=== PATIENT | female | born 1930 | race Caucasian/White ===

== ENCOUNTER 2016-07-26 11:03 | Inpatient (IN) | payer OTHER ==
[~2016-07-26] VITALS: Ht 154.9 cm; Wt 46.7 kg
--- NOTE | 2016-07-26 11:09 | NUR ---
86 Y/O FEMALE AMBULATORY INTO TRIAGE STATING "I JUST DONT FEEL WELL. I FEEL OFF BALANCE. I FEEL CONFUSED". REPORTS DECREASED PO APPETITE/PO INTAKE. ALSO C/O NAUSEA AND DIARRHEA. PT NOTED TO BE SOB - REPORTS HX COPD AND STATES "MY BREATING IT OFF TODAY TOO"
--- NOTE | 2016-07-26 11:42 | NUR ---
PT TO ROOM21 BY STRETCHER. PER PTS SON HE BROUGHT HER TO ER FOR DIARRHEA xWEEK SINCE SHE WAS DC FROM REHAB. PT WAS IN REHAB [id number] FOR PNEUMONIA. HX OF COPD, PT USES O2 2L NC AT HOME NEEDED. O2SAT 91% ON RA AT THIS TIME, PT PLACED ON O2 2L NC WITH O2SAT IMPROVEMENT 96%. PT CHANGED INTO HOSPITAL GOWN, PLACED ON TELLER HEAD NSR 70'S. AWAITING PROVIDER EVAL.
[2016-07-26] MEDS ORDERED: AMLODIPINE BESYL5 M1 PO (11:46)
--- NOTE | 2016-07-26 12:06 | ED GENERAL ADULT ---
History of Present Illness General Chief Complaint: General Adult Stated Complaint: DIARRHEA X 3 DAYS Source: patient Exam Limitations: no limitations Allergies Coded Allergies: No Known Allergies (07/26/16) Reconcile Medications Amlodipine Besylate 5 MG TABLET 1 TAB PO DAILY BP (Reported) Amoxicillin/Potassium Clav (Augmentin 875-125 Tablet) 875 MG-125 MG TABLET 1 TAB PO BID Pneumonia . Sertraline HCl 50 MG TABLET 0.5 TAB PO DAILY depression (Reported) Triage Note: 86 Y/O FEMALE AMBULATORY INTO TRIAGE STATING "I JUST DONT FEEL WELL. I FEEL OFF BALANCE. I FEEL CONFUSED". REPORTS DECREASED PO APPETITE/PO INTAKE. ALSO C/O NAUSEA AND DIARRHEA. PT NOTED TO BE SOB - REPORTS HX COPD AND STATES "MY BREATING IT OFF TODAY TOO" Triage Nurses Notes Reviewed? yes HPI: This patient is an 86-year-old female who presented to the emergency department today for evaluation of multiple complaints. She reported that over the last week she has been having approximately 2 episodes of diarrhea daily. She reported, "I don't always know when I have to move my bowels, sometimes it just comes out and I don't realize it." She denied any back pain. She reported some mild lower abdominal, "discomfort." She denied any abdominal pain. The patient denied any blood in the stool. She reported that she has been feeling chilled. She denied any fevers. She denied any chest pain. She reported decreased appetite and weakness. The patient also reported that she felt like she has been having a more difficult time breathing than normal. She reported that she sometimes uses oxygen at home at 2 L. (SVETLANA GOMEZ,MARYCHUY) Vital Signs & Intake/Output Vital Signs & Intake/Output Vital Signs Date Time Temp Pulse Resp B/P Pulse O2 O2 Flow FiO2 Ox Delivery Rate 07/27 1823 96 Nasal 2.0L Cannula 07/27 1726 98.1 72 20 129/56 96 07/27 1616 Nasal 2.0L Cannula 07/27 1600 96 Nasal 2.0L Cannula 07/27 1453 Nasal 2.0L Cannula 07/27 1451 96 Nasal 2.0L Cannula 07/27 0813 98.1 62 20 132/64 96 Nasal 2.0L Cannula 07/27 0800 96 Nasal 2.0L Cannula 07/27 0059 97.6 07/27 0000 Nasal 2.0L Cannula 07/26 2359 96.4 65 18 110/60 94 Nasal 2.0L Cannula ED Intake and Output 07/27 0000 07/26 1200 Intake Total 1825 Output Total Balance 1825 Intake, IV 1625 Intake, Oral 200 Patient 103 lb 103 lb Weight Past History Travel History Traveled to [place] past 21 day No Medical History Any Pertinent Medical History? see below for history Neurological: NONE EENT: NONE Cardiovascular: NONE Respiratory: COPD Gastrointestinal: NONE Hepatic: NONE Renal: NONE Musculoskeletal: NONE Psychiatric: NONE Endocrine: NONE Blood Disorders: NONE Cancer(s): NONE CAN DOFFER/Reproductive: NONE Surgical History Surgical History: non-contributory Psychosocial History What is your primary language Puerto Rican Tobacco Use: Quit >30 days ago Family History Hx Contributory? No (MARYCHUY MOTA PA-C) Review of Systems Review of Systems Constitutional: Reports: see HPI. EENTM: Reports: no symptoms. Respiratory: Reports: see HPI. Cardiovascular: Reports: no symptoms. GI: Reports: see HPI. Genitourinary: Reports: no symptoms. Musculoskeletal: Reports: no symptoms. Skin: Reports: no symptoms. Neurological/Psychological: Reports: no symptoms. All Other Systems: Reviewed and Negative (MARYCHUY MOTA PA-C) Physical Exam Physical Exam General Appearance: well developed/nourished, no apparent distress, alert, awake Comments: Well-developed well-nourished person in no acute distress HEENT: Normal EENT exam, head normocephalic, moist mucous membranes PERRLA bilaterally Pharynx normal. No swelling or edema. Neck: Supple, no lymphadenopathy Back: Normal inspection Cardiovascular: Regular rate and rhythm with no murmurs, rubs, or gallops Respiratory: Chest nontender. No respiratory distress. Scattered rhonchi throughout all lung melgoza. Abdomen: Soft, nontender and nondistended. No rebound or guarding. No peritoneal signs. Normoactive bowel sounds. No organomegaly Extremity: No edema, no calf tenderness to palpation, normal and equal pulses. Neuro: Alert oriented x3, cranial nerves II through XII grossly intact. Skin: No appreciable rash on exposed skin, skin is warm and dry. Psych: Mood and affect is normal Core Measures ACS in differential dx? Yes CVA/TIA Diagnosis: No Severe Sepsis Present: No Septic Shock Present: No (MARYCHUY MOTA PA-C) Progress Differential Diagnoses I considered the following diagnoses in my evaluation of the patient: [ Gastroenteritis, Clostridium difficile, irritable bowel syndrome, influenza, viral syndrome, ACS, PE, pneumonia, bronchitis, CHF, COPD] Diagnostic Imaging: Viewed by Me: Radiology Read, CT Scan. Discussed w/RAD: Radiology Read, CT Scan. Radiology Impression: PATIENT: GERALDINE VARGAS PRESENT AGE: 86 PATIENT ACCOUNT NO: [id number] : 32 LOCATION: ER ORDERING PHYSICIAN: MARYCHUY MOTA PA-C SERVICE DATE: 07/26/16 EXAM TYPE: CAT - CT HEAD WO IV CONTRAST EXAMINATION: CT HEAD WITHOUT CONTRAST CLINICAL INFORMATION: Rule out intracranial hemorrhage. Off balance. COMPARISON: None. TECHNIQUE: Contiguous axial imaging was performed from the skull base to vertex without intravenous administration of contrast. DLP: 529.16 mGy-cm. FINDINGS: There is no evidence of acute intracranial hemorrhage or territorial infarction. No abnormal mass effect or midline shift is seen. Garcia to white matter differentiation is well preserved. No extra-axial fluid collections are identified. There is severe microvascular ischemic change. There is moderate cerebral atrophy. The cavernous segments of the internal carotid arteries are calcified. Paranasal sinuses and mastoid air cells are clear. IMPRESSION: 1. No intracranial hemorrhage. 2. No evidence of acute cerebral or cerebellar infarction. 3. Severe microvascular ischemic disease. 4. Moderate cerebral atrophy. DICTATED BY: MAULIK ELLSWORTH MD DATE/TIME DICTATED:07/26/161244 TRACK SUBWAY REPAIR SUPERVISOR:RAYMOND DATE/TIME TRANSCRIBED:07/26/161244 CONFIDENTIAL, DO NOT COPY WITHOUT APPROPRIATE AUTHORIZATION. <Electronically signed in Other Vendor System> SIGNED BY: MAULIK ELLSWORTH MD 07/26/16 1253, PATIENT: GERALDINE VARGAS PRESENT AGE: 86 PATIENT ACCOUNT NO: [id number] : 32 LOCATION: [facility] ORDERING PHYSICIAN: MARYCHUY MOTA PA-C SERVICE DATE: 07/26/16 EXAM TYPE: RAD - XRY-CHEST XRAY, PA AND LATERAL EXAMINATION: XR CHEST CLINICAL INFORMATION: Weakness. Shortness of breath. Pneumonia. COMPARISON: Chest radiograph dated 02/22/2016. TECHNIQUE: 2 views of the chest were obtained. FINDINGS: The cardiac silhouette is normal in size. There is mild calcification of the aortic knob. There is a somewhat dense triangular shaped opacity within the left lower lung in the retrocardiac region which was not seen on the prior examination and is consistent with pneumonia. There is no pneumothorax or large pleural effusion. IMPRESSION: Left lower lobe retrocardiac pneumonia. This should be followed to resolution with serial radiographs following appropriate medical treatment. DICTATED BY: MAULIK ELLSWORTH MD DATE/TIME DICTATED:07/26/161258 TRACK SUBWAY REPAIR SUPERVISOR:RAYMOND DATE/TIME TRANSCRIBED:07/26/161258 CONFIDENTIAL, DO NOT COPY WITHOUT APPROPRIATE AUTHORIZATION. <Electronically signed in Other Vendor System> SIGNED BY: MAULIK ELLSWORTH MD 07/26/16 1306, PATIENT: GERALDINE VARGAS PRESENT AGE: 86 PATIENT ACCOUNT NO: [id number] : 32 LOCATION: [facility] ORDERING PHYSICIAN: MARYCHUY MOTA PA-C SERVICE DATE: 07/26/16 EXAM TYPE: CAT - CT ABD & PELVIS W IV CONTRAST; CT LUMB SPINE WO IV CONTRAST EXAMINATION: CT ABDOMEN AND PELVIS WITH CONTRAST CT LUMBAR SPINE WITHOUT CONTRAST CLINICAL INFORMATION: Diarrhea, abdominal pain, incontinence. COMPARISON: Chest CT 06/11/2014. TECHNIQUE: A noncontrast CT of the lumbar spine is performed with sagittal and coronal reformats. Contiguous axial thin section helical images of the abdomen and pelvis were performed following the administration of 94 mL of intravenous Optiray 320. The data set was reformatted in the coronal and sagittal planes and reviewed on an independent workstation. DLP: 420 mGy-cm. FINDINGS: LUNG BASES: Bronchial wall thickening in the left lower lobe with patchy airspace opacities extending to the posterior costophrenic sulcus compatible with atelectasis and/or pneumonia. LIVER, GALLBLADDER, BILIARY TREE: Innumerable hypoattenuating lesions throughout the liver, the majority of which were present and shown to represent cysts on an MRI from 2005. The gallbladder has been removed. No biliary ductal dilatation. PANCREAS: Normal SPLEEN: Normal ADRENAL GLANDS, KIDNEYS, URETERS, AND BLADDER: No hydronephrosis. Nephrograms are symmetric. No suspicious lesions BOWEL LOOPS: Diverticulosis of the descending and sigmoid colon without evidence of acute diverticulitis. No obstruction. Normal appendix. LYMPH NODES/RETROPERITONEUM: No retroperitoneal, mesenteric, or pelvic adenopathy. No ascites or free pelvic fluid. OSSEOUS STRUCTURES: No suspicious lesions. ADDITIONAL FINDINGS: Prominent refluxing left ovarian veins. There are perirectal varices protruding along the left lateral wall of the rectosigmoid. There are diffuse atherosclerotic calcifications of the abdominal aorta with a focal infrarenal aneurysm measuring 2.1 cm in diameter. There is a lobulated soft tissue lesion posterior to the left ischial tuberosity, within a fatty plane between portions of the gluteus raiza muscle measuring approximately 7.4 x 2.2 x 8.7 cm with interspersed fat. There are serpiginous areas of density which most likely represent dystrophic calcification. This most likely represents a vascular malformation. Evaluation of the lumbar spine demonstrates an elongated, enhancing lesion which has chronically enlarged the left S1-S2 neural foramen. This measures 2.1 x 2.3 x 5.0 cm and most likely represents a schwannoma. There is moderate degenerative disc disease with vacuum phenomenon and a broad-based posterior disc bulge at L5 -S1. There is a left foraminal disc osteophyte complex which moderately narrows the neural foramen. Mild right neural foraminal narrowing. At L4-L5, there is minimal anterolisthesis likely related to marked facet arthrosis, with a broad- based disc bulge mildly narrowing the neural foramen. There is no central stenosis. IMPRESSION: Presumed left S1 schwannoma noting elongated enhancing lesion measuring 2.1 x 2.3 x 5.0 cm chronically enlarging the S1-S2 neural foramen. Colonic diverticulosis without diverticulitis. Perirectal varices as described. Soft tissue lesion within the left gluteus raiza muscle posterior to the ischial tuberosity measuring 7.4 x 2.2 x 8.7 cm with serpiginous appearance, areas of increased density most likely representing calcification, and interspersed fat. This most likely represents a vascular malformation although could be further evaluated with an ultrasound if indicated. Left lower lobe bronchial wall thickening with basilar atelectasis and/or pneumonia. Innumerable hepatic hypodensities most likely representing cysts, the majority of which were shown to represent cysts on a 2006 MRI. [id number] degenerative disc disease of the lumbar spine, most pronounced at L5-S1. Minimal anterolisthesis at L4-L5 with marked facet arthrosis. DICTATED BY: CATHI PRICE MD DATE/TIME DICTATED:07/26/161403 TRACK SUBWAY REPAIR SUPERVISOR:RAD.STUBBS DATE/ TIME TRANSCRIBED:07/26/16 / 1404 CONFIDENTIAL, DO NOT COPY WITHOUT APPROPRIATE AUTHORIZATION. <Electronically signed in Other Vendor System> SIGNED BY: ALBERT SANTOSCATHI 07/26/16 1521 Initial ED EKG: normal axis, normal intervals, normal sinus rhythm, LVH, no ST T wave changes, 76 bpm Comments: 07/26/2016 2:50:31 PM: Dr. Cisneros is currently at the patient's bedside the evaluation. I spoke with this patient's son, Chapito: [phone]. I updated him on this patient's current clinical condition and the fact that she has a pneumonia. She will be admitted to the hospital for IV antibiotics. Pending CT scan of the abdomen and pelvis. (SVETLANA GOMEZ,MARYCHUY) Plan of Care: Orders Procedure Date/time Status PROTHROMBIN TIME 07/28 06 Active CBC WITHOUT DIFFERENTIAL 07/28 06 Active RT: Evaluation 07/27 1434 Active RAPID VIRAL INFLUENZA A 07/27 030 Complete CULTURE,URINE 07/27 030 Active CULTURE,STOOL 07/27 0307 Active THERAPIST ORDERS 07/27 UNK Complete Therapeutic Activities 07/27 UNK Complete PT EVAL LOW COMPLEX 20 MIN 07/27 UNK Complete Gait Training 07/27 UNK Complete Change service to 07/27 UNK Active MISSING MEDICATION FORM 07/27 UNK Active OXYGEN SETUP CHG 07/26 UNK Complete OXYGEN 07/26 UNK Complete OXYGEN TRANSPORT 07/26 UNK Complete Current Medications Sig/Celeste Start time Last Medication Dose Stop Time Status Admin Amlodipine Besylate 5 MG DAILY 07/28 1000 AC (Norvasc) Albuterol Sulfate 3 ML Q4H PRN 07/26 1715 AC (Proventil) Laboratory Tests 07/27/16 0615: Anion Gap 5, Estimated GFR > 60, BUN/Creatinine Ratio 31.7 H, Total Bilirubin 0.5, Direct Bilirubin 0.4, AST 20, ALT 49, Alkaline Phosphatase 77, Total Protein 5.6 L, Albumin 3.0 L, CBC w Diff NO MAN DIFF REQ, RBC 4.02 L, MCV 86.7, MCH 29.4, RDW 13.7, MPV 8.6, Gran % 87.6 H, Lymphocytes % 6.5 L, Monocytes % 5.7, Eosinophils % 0.2, Basophils % 0 L, Absolute Granulocytes 14.3 H, Absolute Lymphocytes 1.1 L, Absolute Monocytes 0.9 H, Absolute Eosinophils 0, Absolute Basophils 0, PUBS MCHC 33.9 Microbiology 07/27 533 URINE ROUT: Urine Culture - RECD 07/27 533 URINE ROUT: Streptococcus pneumoniae Antigen (M - COMP 07/27 533 URINE ROUT: Legionella Antigen - COMP 07/27 030 STOOL: Stool Culture - COLB 07/27 228 STOOL: Stool Culture - CAN Cancelled: Cancelled via OE: Per MD Decision Departure Departure Disposition: STILL A PATIENT Condition: Stable Clinical Impression Primary Impression: Pneumonia Qualifiers: Pneumonia type: due to unspecified organism Laterality: right Lung location: lower lobe of lung Qualified Code: J18.1 - Lobar pneumonia, unspecified organism Referrals: Hayden WHITNEY MD (PCP/Family) Departure Forms: Customer Survey General Discharge Information Prescriptions: Current Visit Scripts Amoxicillin/Potassium Clav (Augmentin 875-125 Tablet) 1 TAB PO BID 3 Days . Admission Note Spoke With: MAGALY HOLLINGSWORTH M.D Documentation of Exam: Documentation of any treatments & extenuating circumstances including Concerns Regarding Discharge (functional status, medication knowledge or non-compliance, living conditions, etc.) that warrant an admission rather than observation: [ This patient is an 86 year old female who presented for 1 week of diarrhea, weakness, and shortness of breath. Right sided retrocardiac pneumonia. WBC count of 19.1. Admission for follow-up blood cultures, follow-up stool cultures, follow-up urine culture, IV antibiotics, possible pulmonology consultation, repeat chest x-ray, PT consultation, and close monitoring. Premature discharge could prove medically harmful.] (MARYCHUY MOTA PA-C) PA/MARKETING RESEARCH ANALYST Co-Sign Statement Statement: ED Attending supervision documentation- [X] I saw and evaluated the patient. I have also reviewed all the pertinent lab results and diagnostic results. I agree with the findings and the plan of care as documented in the PA's/MARKETING RESEARCH ANALYST's documentation. [] I have reviewed the ED Record and agree with the PA's/MARKETING RESEARCH ANALYST's documentation. [] Additions or exceptions (if any) to the PAs/MARKETING RESEARCH ANALYST's note and plan are summarized below: [] (CARIDAD SANTOS,SHAWN Amin) Critical Care Note Critical Care Note Critical Care Time: non-applicable (MARYCHUY MOTA PA-C) [] I have reviewed the ED Record and agree with the PA's/MARKETING RESEARCH ANALYST's documentation. [] Additions or exceptions (if any) to the PAs/MARKETING RESEARCH ANALYST's note and plan are summarized below: [] (CARIDAD SANTOS,SHAWN Amin) Critical Care Note Critical Care Note Critical Care Time: non-applicable (SVETLANA GOMEZ,MARYCUHY)
--- NOTE | 2016-07-26 12:15 | NUR ---
BLOOD DRAWN AND SENT TO LAB-[facility]. PT SENT TO RAD BY MIGUEL.
[2016-07-26 12:28] LABS: ABSOLUTE BASOPHIL COUNT 0.3 /CUMM (0.0-0.2); ABSOLUTE EOSINOPHIL COUNT 0.1 /CUMM (0.0-0.7); ABSOLUTE GRANULOCYTE CT 16.2 /CUMM (1.4-6.5); ABSOLUTE LYMPH COUNT 1.4 /CUMM (1.2-3.4); ABSOLUTE MONOCYTE COUNT 1.1 /CUMM (0.10-0.60); BASOPHIL % 1.8 % (0.0-2.0); EOSINOPHIL % 0.3 % (0-5); GRANULOCYTE % 84.6 % (42.2-75.2); HEMATOCRIT 42.1 % (37-47); MEAN CORPUSCULAR HGB 29.4 PG (27.0-31.0); MEAN CORPUSCULAR HGB CONC 33.9 G/DL (33.0-37.0); MEAN CORPUSCULAR VOLUME 86.8 FL (81.0-99.0); MEAN PLATELET VOLUME 8.6 FL (7.4-10.4); PLATELET COUNT 221 /CUMM (130-400); RBC DISTRIBUTION WIDTH 13.8 % (11.5-14.5); RED BLOOD CELL CT 4.85 /CUMM (4.20-5.40); WHITE BLOOD CELL COUNT 19.1 /CUMM (4.8-10.8)
--- NOTE | 2016-07-26 12:53 | CT SCAN REPORT ---
EXAMINATION: CT HEAD WITHOUT CONTRAST CLINICAL INFORMATION: Rule out intracranial hemorrhage. Off balance. COMPARISON: None. TECHNIQUE: Contiguous axial imaging was performed from the skull base to vertex without intravenous administration of contrast. DLP: 529.16 mGy-cm. FINDINGS: There is no evidence of acute intracranial hemorrhage or territorial infarction. No abnormal mass effect or midline shift is seen. Garcia to white matter differentiation is well preserved. No extra-axial fluid collections are identified. There is severe microvascular ischemic change. There is moderate cerebral atrophy. The cavernous segments of the internal carotid arteries are calcified. Paranasal sinuses and mastoid air cells are clear. IMPRESSION: 1. No intracranial hemorrhage. 2. No evidence of acute cerebral or cerebellar infarction. 3. Severe microvascular ischemic disease. 4. Moderate cerebral atrophy.
--- NOTE | 2016-07-26 13:02 | NUR ---
RESP AT BEDSIDE FOR DUONEB.
--- NOTE | 2016-07-26 13:06 | RADIOLOGY REPORT ---
EXAMINATION: XR CHEST CLINICAL INFORMATION: Weakness. Shortness of breath. Pneumonia. COMPARISON: Chest radiograph dated 02/22/2016. TECHNIQUE: 2 views of the chest were obtained. FINDINGS: The cardiac silhouette is normal in size. There is mild calcification of the aortic knob. There is a somewhat dense triangular shaped opacity within the left lower lung in the retrocardiac region which was not seen on the prior examination and is consistent with pneumonia. There is no pneumothorax or large pleural effusion. IMPRESSION: Left lower lobe retrocardiac pneumonia. This should be followed to resolution with serial radiographs following appropriate medical treatment.
--- NOTE | 2016-07-26 13:28 | NUR ---
PT MEDICATED WITH SOLUMEDROL PER EMAR AND SENT TO CAT SCAN BY MIGUEL.
--- NOTE | 2016-07-26 15:09 | NUR ---
PT MEIDCATED WITH ROCEPHINE PER EMAR. NS AND ZITHROMAX INFUSING PER EMAR.
--- NOTE | 2016-07-26 15:21 | CT SCAN REPORT ---
EXAMINATION: CT ABDOMEN AND PELVIS WITH CONTRAST CT LUMBAR SPINE WITHOUT CONTRAST CLINICAL INFORMATION: Diarrhea, abdominal pain, incontinence. COMPARISON: Chest CT 06/11/2014. TECHNIQUE: A noncontrast CT of the lumbar spine is performed with sagittal and coronal reformats. Contiguous axial thin section helical images of the abdomen and pelvis were performed following the administration of 94 mL of intravenous Optiray 320. The data set was reformatted in the coronal and sagittal planes and reviewed on an independent workstation. DLP: 420 mGy-cm. FINDINGS: LUNG BASES: Bronchial wall thickening in the left lower lobe with patchy airspace opacities extending to the posterior costophrenic sulcus compatible with atelectasis and/or pneumonia. LIVER, GALLBLADDER, BILIARY TREE: Innumerable hypoattenuating lesions throughout the liver, the majority of which were present and shown to represent cysts on an MRI from 2005. The gallbladder has been removed. No biliary ductal dilatation. PANCREAS: Normal SPLEEN: Normal ADRENAL GLANDS, KIDNEYS, URETERS, AND BLADDER: No hydronephrosis. Nephrograms are symmetric. No suspicious lesions BOWEL LOOPS: Diverticulosis of the descending and sigmoid colon without evidence of acute diverticulitis. No obstruction. Normal appendix. LYMPH NODES/RETROPERITONEUM: No retroperitoneal, mesenteric, or pelvic adenopathy. No ascites or free pelvic fluid. OSSEOUS STRUCTURES: No suspicious lesions. ADDITIONAL FINDINGS: Prominent refluxing left ovarian veins. There are perirectal varices protruding along the left lateral wall of the rectosigmoid. There are diffuse atherosclerotic calcifications of the abdominal aorta with a focal infrarenal aneurysm measuring 2.1 cm in diameter. There is a lobulated soft tissue lesion posterior to the left ischial tuberosity, within a fatty plane between portions of the gluteus raiza muscle measuring approximately 7.4 x 2.2 x 8.7 cm with interspersed fat. There are serpiginous areas of density which most likely represent dystrophic calcification. This most likely represents a vascular malformation. Evaluation of the lumbar spine demonstrates an elongated, enhancing lesion which has chronically enlarged the left S1-S2 neural foramen. This measures 2.1 x 2.3 x 5.0 cm and most likely represents a schwannoma. There is moderate degenerative disc disease with vacuum phenomenon and a broad-based posterior disc bulge at L5-S1. There is a left foraminal disc osteophyte complex which moderately narrows the neural foramen. Mild right neural foraminal narrowing. At L4-L5, there is minimal anterolisthesis likely related to marked facet arthrosis, with a broad-based disc bulge mildly narrowing the neural foramen. There is no central stenosis. IMPRESSION: Presumed left S1 schwannoma noting elongated enhancing lesion measuring 2.1 x 2.3 x 5.0 cm chronically enlarging the S1-S2 neural foramen. Colonic diverticulosis without diverticulitis. Perirectal varices as described. Soft tissue lesion within the left gluteus raiza muscle posterior to the ischial tuberosity measuring 7.4 x 2.2 x 8.7 cm with serpiginous appearance, areas of increased density most likely representing calcification, and interspersed fat. This most likely represents a vascular malformation although could be further evaluated with an ultrasound if indicated. Left lower lobe bronchial wall thickening with basilar atelectasis and/or pneumonia. Innumerable hepatic hypodensities most likely representing cysts, the majority of which were shown to represent cysts on a 2006 MRI. [id number] degenerative disc disease of the lumbar spine, most pronounced at L5-S1. Minimal anterolisthesis at L4-L5 with marked facet arthrosis.
[2016-07-26] MEDS ORDERED: SERTRALINE HCL50 MG PO (16:14)
--- NOTE | 2016-07-26 16:26 | NUR ---
HOUSE STAFF AT BEDSIDE.
--- NOTE | 2016-07-26 16:35 | History & Physical ---
MANUELKALPANAKAMERON 07/26/16 1634: General Information and HPI MD Statement: I have seen and personally examined GERALDINE LOGAN and documented this H&P. The patient is a 86 year old F who presented with a patient stated chief complaint of 1. Shortness of breath 2. Diarrhea Source of Information: patient, old records Exam Limitations: no limitations History of Present Illness: Ms Logan is a 86 yr old woman who was known to be in her usual state of health one week ago. She has a PMH of COPD(2L oxygen PRN), HTN. She came to the hospital w/ a chief concern of diarrhea x 1 wk, and shortness of breath x 2 days. As per the pt, she developed diarrhea x 1 wk ago, increase in volume, loose stool, no associated blood, mucus or pain, symptomatic only during the day. No recent abx use, no travel, or abnormal food ingestion, no ill contacts, no fever , no abdominal pain. Also was concerned about shortness of breath only upon doing her daily chores, worsening in the last 24-48 hrs. No cough. No orthopnea. No chest pain, palpitations, no lightheadedness. No urinary symptoms. No chills. Reports imbalance when walking which is chronic. Independent at baseline. Sees Dr. Whitney ( PCP ). Gives a remote history of hepatitis C, details of which are not clear. Allergies/Medications Allergies: Coded Allergies: No Known Allergies (07/26/16) Home Med list Amlodipine Besylate 5 MG TABLET 1 TAB PO DAILY BP (Reported) Sertraline HCl 50 MG TABLET 0.5 TAB PO DAILY depression (Reported) Past History Travel History Traveled to [place] past 21 day No Medical History Neurological: NONE EENT: NONE Cardiovascular: NONE Respiratory: COPD Gastrointestinal: NONE Hepatic: NONE Renal: NONE Musculoskeletal: NONE Psychiatric: NONE Endocrine: NONE Blood Disorders: NONE Cancer(s): NONE [employer]/Reproductive: NONE Surgical History Surgical History: non-contributory Past Family/Social History Family History Relations & Conditions if any Relation not specified for: *No pertinent family history Review of Systems Review of Systems Constitutional: Reports: see HPI. Denies: chills, fever. EENTM: Denies: visual changes. Cardiovascular: Denies: chest pain, palpitations. Respiratory: Reports: short of breath. Denies: cough. GI: Reports: diarrhea. Denies: abdominal pain, nausea, bloody stool. Genitourinary: Denies: dysuria, hesitation. Musculoskeletal: Denies: gout. Skin: Denies: change in skin color. Neurological/Psychological: Denies: anxiety, headache. Hematologic/Endocrine: Denies: bruising. Exam & Diagnostic Data Last 24 Hrs of Vital Signs/I&O Vital Signs Date Time Temp Pulse Resp B/P Pulse O2 O2 Flow FiO2 Ox Delivery Rate 07/26 1907 Nasal 2.0L Cannula 07/26 1746 98.6 74 18 119/58 95 Room Air 07/26 1600 98.6 70 18 146/56 95 Nasal 2.0L Cannula 07/26 1339 94 Nasal 2.0L Cannula 07/26 1151 Nasal Cannula 07/26 1108 97.1 91 22 138/90 92 Room Air Intake & Output 07/26 1600 07/26 0800 07/26 0000 Intake Total Output Total Balance Patient 103 lb Weight Physical Exam General Appearance Alert, Oriented X3, Cooperative, No Acute Distress Skin No Rashes, No Breakdown, bruise on the left foot-ventral surface HEENT PERRLA Neck Supple, No JVD, No thryomegaly Lymphatic Cervical nl Cardiovascular Regular Rate, Normal S1, Normal S2 Lungs Normal Air Movement Abdomen Normal Bowel Sounds, Soft, No Tenderness, hepatomegaly-increased liver span, scar present on the abdomen Neurological Normal Speech, Strength at 5/5 X4 Ext, Normal Tone, Sensation Intact, Cranial Nerves 3-12 NL, Reflexes 2+ Extremities No Clubbing, No Cyanosis, No Edema, Normal Pulses, No Tenderness/ Swelling Vascular Pulses Symmetrical Body Front and Back (Adult) 1) eccymosis 2) surgical scar 3) swelling on the paraspinal region- [id number] ? lipoma swelling in the left sacral region. Erythema in the sacral region. 4) swelling Diagnostic Data EKG Results NSR HR 76, No STTWI Other Results CT head : 1. No intracranial hemorrhage. 2. No evidence of acute cerebral or cerebellar infarction. 3. Severe microvascular ischemic disease. 4. Moderate cerebral atrophy. CT lumbar spine, CT abdomen pelvis: Presumed left S1 schwannoma noting elongated enhancing lesion measuring 2.1 x 2.3 x 5.0 cm chronically enlarging the S1-S2 neural foramen. Colonic diverticulosis without diverticulitis. Perirectal varices as described. Soft tissue lesion within the left gluteus raiza muscle posterior to the ischial tuberosity measuring 7.4 x 2.2 x 8.7 cm with serpiginous appearance, areas of increased density most likely representing calcification, and interspersed fat. This most likely represents a vascular malformation although could be further evaluated with an ultrasound if indicated. Left lower lobe bronchial wall thickening with basilar atelectasis and/or pneumonia. Innumerable hepatic hypodensities most likely representing cysts, the majority of which were shown to represent cysts on a 2006 MRI. [id number] degenerative disc disease of the lumbar spine, most pronounced at L5-S1. Minimal anterolisthesis at L4-L5 with marked facet arthrosis Assessment/Plan Assessment: She is an older lady w/ a PMH of COPD is being evaluated for sudden onset of shortness of breath, and diarrhea likely from a viral illness. At the time of admission, vitals indicated T 97.1, NH 91, RR 22, BP 138/90, 92% 2L. Lab findings indiated- Leucocytosis WBC 19.1 w/ 84% granulocytes, Hb 14.3, Normal electrolytes- Na 136, K 4.2, Bicarbonate 28, BUN 29, Sr Cr 0.7, BUN/Cr ratio-41.4, AST 32, ALT 60, Alkaline phosphotase 90, UA clear. Radiological findings- CXR indicated left lower lobe pnemonia ? (retrocardiac opacification- also seen on the CT scan abdomen, although limited exam). CT scan abdomen for the evaluation of diarrhea revealed diverticulosis, multiple hepatic cysts(gives a remote history of HepC, and exam findings of increased liver span) . Also has incidental findings of hemangioma in the gluteal region, and Schwannoma. Admission diagnosisi: 1. Community Acquired PNA. 2. Viral gastroenteritis Below is the problem list and plan: 1. Shortness of breath- Currently on oxygen. Pt has been started on abx, intravenous Ceftriaxone and Azithromycin. LRC, blood culture. Urinary strep for quicker result. 2. Diarrhea- likely viral gastroenteritis. Symptomatic treatment. Stool cultures since the pt had symtpoms for a week. Diet as tolerated. 3. Abnormal CT findings- slightly elevated transaminases. RUQ has been ordered. To follow up about the history of HepC. Schwannoma-currently no neurological signs or symptoms. Continue to monitor. Check INR for increased bruising and abnormal liver patholog on imaging. 4. Diet- heart heatlhy diet 5. DVT prophylaxis - lovenox. 6. Placement- PT evaluation to ascertain a need for placement. As Ranked By This Provider Problem List: 1. Pneumonia Qualifiers Pneumonia type: due to unspecified organism Laterality: right Lung location: lower lobe of lung Qualified Code: J18.1 - Lobar pneumonia, unspecified organism Core Measures/Miscellaneous Acute Coronary Syndrome ACS Diagnosis: No Cerebrovascular Accident CVA/TIA Diagnosis: No Congestive Heart Failure CHF Diagnosis: No Venous Thromboembolism VTE Risk Factors: Acute medical illness, Age > 40 VTE Prophylaxis Ordered Inpt: Pharm- Lovenox No Mech VTE prophylaxis d/t: No contraindications No VTE Pharm Prophylaxis d/t: No contraindications VTE Diagnosis: No VTE Type: NONE VTE Confirmed by (Test): NONE Severe Sepsis Severe Sepsis Present: No Septic Shock Septic Shock Present: No Miscellaneous Documentation Attending Case Discussed With: MAGALY HOLLINGSWORTH M.D Primary Care Physician: Hayden WHITNEY MD SHAYAN Patient sees these Specialists none Level of Patient Care: General Medicine MAGALY HOLLINGSWORTH MD 07/26/16 1656: Attending MD Review Statement Attending Statement Attending MD Statement: examined this patient, discuss w/resident/PA/SURVEY RESEARCH ASSOCIATE, agreed w/resident/PA/SURVEY RESEARCH ASSOCIATE, reviewed EMR data (avail), discussed with nursing, amended to note Attending Assessment/Plan: Patient is a very pleasant 86-year-old female with medical history significant for oxygen dependent COPD and patient's report of hepatitis C. She presents with complaints of malaise, diarrhea, shortness of breath and productive cough or been going on for about one week. She presented for evaluation today on behest of her son due to continued episodes of incontinence. She reports been in her usual state of health until about a week ago. At baseline she ambulates around the home alone with the aid of a walker. She is independent and still drives. For the past week however she has had increasing malaise related progression of her symptoms. She has been having loose bowel movements for the past week. She denies any bloody contents. She reports that her stools are yellow in color. She denies any nausea vomiting. She denies any abdominal pain. She also gives report of worsening shortness of breath and increasing cough productive of yellow phlegm. She denies any chest pain. She reports decreasing exercise tolerance. In the emergency room she arrived afebrile and hemodynamically stable. She was placed on oxygen supplementation. Imaging studies of the chest and abdomen were done. Chest imaging is suggestive of left-sided pneumonia. Abdominal CT shows a number of chronic changes. She was referred to the inpatient medical service for further management. On examination she again she is fair bilaterally with no added sounds. Heart sounds are regular with no audible murmur. Abdomen is soft and nontender. She has no peripheral edema. Laboratory data shows leukocytosis with mild shift and mild elevation of her AST. Problems: 1. Community-acquired pneumonia 2. Acute diarrhea 3. Prerenal azotemia 4. Deconditioning 5. Oxygen dependent COPD 6. Abnormal LFTs Plan: -Admit to the inpatient medical service for further management of her pneumonia. -Continue IV Rocephin/azithromycin started in the ER. -Obtain sputum cultures are follow-up sensitivities. -She should be discharged home on bronchodilators for her COPD history. -Hydrate with half normal saline at 75 mL an hour for 1 L. -Physical therapy evaluation. -Patient reports been markedly deconditioned and is requesting stay at a [facility] facility upon discharge. She will be reevaluated for several discharge planning according to her response to therapy. -Check stool for WBC, culture and Clostridium difficile. If infectious diarrhea workup is negative begin patient on Imodium. -Repeat LFTs in a.m. Please confirm from her primary care provider diagnoses of hepatitis C. -DVT prophylaxis with subcutaneous heparin. SABASLENIN SUAZO 07/26/16 1825: Resident Review Statement Resident Statement: discussed with internet technology manager Other Findings: She is 86-year-old woman with past medical history of hypertension, COPD on 2 L of home oxygen that she uses on and off and depression presented to ER with complaint of having diarrhea for last 1 week and worsening shortness of breath with exertion. She complains of having watery nonbloody diarrhea with incontinence and without any nausea, vomiting, abdominal pain. She also reports having chills. No recent sick contacts, travel or use of antibiotics. She did not eat anything unusual. She denies any upper respiratory symptoms, chest pain or discomfort, palpitations, wheezing, chest congestion. She admits having PND. No urinary symptoms. Reports poor appetite and generalized weakness. She has remote history of smoking. Less than a pack per day for 20 years. No alcohol or illicit drug use. She lives alone and independent for ADLs and IADLs. She drives by herself. Vitals on admission: Temperature 97.1, pulse 91, respiratory rate 22, blood pressure 138/90 and oxygen saturation 91% on room air and she was put on 2 L of oxygen via nasal cannula. Oxygen saturation with oxygen was 96%. Positive physical exam findings: Small lipoma on back, bony prominence or lower back, nontender. Bruise on her left foot. Pertinent labs: WBC count 19.1, sodium 136, BUN 29, BUN/creatinine ratio 41, ALT 60, normal ABGs EKG: Normal sinus rhythm with no acute ST-T wave changes CXR: Left lower lobe retrocardiac pneumonia. Head CT: No acute intracranial pathology. Severe microvascular ischemic disease and moderate cerebral atrophy. CT abdomen pelvis with IV contrast: Left S1 schwannoma, chronic diverticulosis, perirectal varices, soft tissue lesion within left gluteus raiza ? Calcification versus fat versus vascular malformation. Hepatic cysts. Mild-to- moderate degenerative disc disease of lumbar spine. Assessment and plan She is 86-year-old woman with past medical history of hypertension, COPD on 2 L of home oxygen that she uses on and off and depression is going to be admitted and [facility] for: Problem list 1. Community-acquired pneumonia 2. Gastroenteritis most likely viral 3. Transaminitis. History of hepatic cysts and remote history of hepatitis see per patient 4. History of hypertension 5. History of COPD 6. Generalized weakness We will admit patient to general medicine floor. Monitor vitals closely. We'll keep oxygen saturation more than 92%. Continue TRC nebs. We will continue IV ceftriaxone and azithromycin for community-acquired pneumonia. Follow-up blood and stool cultures. Check urine for Legionella and strep pneumonia. Gentle hydration. Will repeat LFTs tomorrow. We will hold amlodipine for now and resume his blood pressure rises. Physical therapy evaluation and treatment. Subcutaneous Lovenox for DVT prophylaxis. Full code.
--- NOTE | 2016-07-26 17:15 | NUR ---
PATIENT ASSIGNED TO ROOM 205-1
--- NOTE | 2016-07-26 18:11 | NUR ---
REPORT CALLED TO [facility] TO LUZ MARINA MCGINNIS, DISTRIBUTION CALLED FOR TRANSPORT.
--- NOTE | 2016-07-26 18:12 | NUR ---
1811 NOTE WRITTEN BY LUZ MARINA THOMSON.
[2016-07-26 23:59] VITALS: BP 110/60
--- NOTE | 2016-07-27 05:54 | PN- Housestaff ---
LIDIA JACKSON 07/27/16 0554: Subjective Follow-up For: - pneumonia Subjective: She was comfortable this am. She did not have any chest pain or shortness of breath. Vital stable overnight. During the day, the patient was requesting to be discharged to [facility], while the physical therapy recommended home self care. Discussed with Ismael for possibility of her going to an STR. Await decision in the a.m. Review of Systems Constitutional: Reports: see HPI. Objective Last 24 Hrs of Vital Signs/I&O Vital Signs Date Time Temp Pulse Resp B/P Pulse O2 O2 Flow FiO2 Ox Delivery Rate 07/27 0059 97.6 07/27 0000 Nasal 2.0L Cannula 07/26 2359 96.4 65 18 110/60 94 Nasal 2.0L Cannula 07/26 1907 Nasal 2.0L Cannula 07/26 1746 98.6 74 18 119/58 95 Room Air 07/26 1600 98.6 70 18 146/56 95 Nasal 2.0L Cannula 07/26 1339 94 Nasal 2.0L Cannula 07/26 1151 Nasal Cannula 07/26 1108 97.1 91 22 138/90 92 Room Air Intake & Output 07/27 0800 07/27 0000 07/26 1600 Intake Total 1825 Output Total 400 Balance -400 1825 Intake, IV 1625 Intake, Oral 200 Output, Urine 400 Patient 103 lb 103 lb Weight Physical Exam General Appearance: No Acute Distress Other Physical Findings: General Exam: AAOx3, No acute distress, Skin: No rashes, no breakdown HEENT: PERRLA, EOMI Neck: Supple, No JVD No cervical lymphadenopathy CVS: Reg Rate, Normal S1,S2, No MGR Resp: Normal air entry, no ronchi/rales Abdomen: Soft, No tenderness, Normal Bowel Sounds Neuro: Normal Speech, Strength 5/5 b/l x 4 extremities, Sensation intact, CN III -XII NL, Reflexes 2+ Extremities: No cyanosis, pedal edema, echyoses on the left ankle. Swelling and tenderness in the sacral region. Current Medications: Current Medications Sig/Celeste Start time Last Medication Dose Route Stop Time Status Admin Albuterol Sulfate 3 ML Q4H PRN 07/26 1715 AC INH Albuterol Sulfate 3 ML ONCE ONE 07/26 1245 DC 07/26 INH 07/26 1246 1255 Azithromycin 500 MG DAILY 07/27 1000 AC Dextrose/Water 250 ML IV Azithromycin 500 MG ONCE ONE 07/26 1345 DC 07/26 Dextrose/Water 250 ML IV 07/26 1444 1508 Ceftriaxone Sodium 1,000 MG DAILY 07/27 1000 AC IV Ceftriaxone Sodium 0 .STK-MED ONE 07/26 1351 DC .ROUTE Ceftriaxone Sodium 1,000 MG ONCE ONE 07/26 1345 DC 07/26 IV 07/26 1346 1508 Enoxaparin Sodium 40 MG DAILY 07/27 1000 AC SC Ipratropium [place] 2.5 ML ONCE ONE 07/26 1245 DC 07/26 INH 07/26 1246 1255 Methylprednisolone 0 .STK-MED ONE 07/26 1326 DC .ROUTE Methylprednisolone 125 MG ONCE ONE 07/26 1300 DC 07/26 IV 07/26 1301 1328 Ondansetron HCl 4 MG ONCE ONE 07/26 1215 CAN IV 07/26 1216 Sertraline HCl 25 MG DAILY 07/27 1000 AC PO Sodium Chloride 1,000 ML .[id number] 07/26 1700 AC 07/26 IV 07/27 0619 1702 Sodium Chloride 1,000 ML BOLUS ONE 07/26 1345 DC 07/26 IV 07/26 1444 1508 Last 24 Hrs of Lab/Julio C Results Last 24 Hrs of Labs/Mics: Laboratory Tests 07/26/16 1631: Lactic Acid Cancelled 07/26/16 1434: Urine Color YEL, Urine Clarity CLEAR, Urine pH 6.5, Ur Specific [place] 1.010, Urine Protein NEG, Urine Ketones NEG, Urine Nitrite NEG, Urine Bilirubin NEG, Urine Urobilinogen 0.2, Ur Leukocyte Esterase NEG, Ur Microscopic EXAM NOT REQUIRED, Urine Hemoglobin NEG, Urine Glucose NEG 07/26/16 1331: Lactic Acid Cancelled 07/26/16 1325: pH 7.45, pCO2 37, pO2 94, HCO3 25, ABG O2 Sat (Measured) 97.0, P-50 (Temp Corrected) N, Carboxyhemoglobin 0.6 L, O2 Concentration % 2LPM, O2 Delivery Method NC, Phlebotomy Draw Site RIGHT BRACHIAL 07/26/16 1210: Anion Gap 7, Estimated GFR > 60, BUN/Creatinine Ratio 41.4 H, Glucose 124 H, Lactic Acid 1.6, Calcium 9.2, Magnesium 2.1, Total Bilirubin 1.0, AST 32, ALT 60 H, Alkaline Phosphatase 90, Troponin I < 0.01, Total Protein 6.8, Albumin 3.8, Globulin 3.0, Albumin/Globulin Ratio 1.3, CBC w Diff MAN DIFF ORDERED, RBC 4.85, MCV 86.8, MCH 29.4, RDW 13.8, MPV 8.6, Gran % 84.6 H, Lymphocytes % 7.3 L, Monocytes % 6.0, Eosinophils % 0.3, Basophils % 1.8, Absolute Granulocytes 16.2 H, Absolute Lymphocytes 1.4, Absolute Monocytes 1.1 H, Absolute Eosinophils 0.1 , Absolute Basophils 0.3, Platelet Estimate ADEQUATE, Normocytic RBCs VERIFIED, Normochromic RBCs VERIFIED, PUBS MCHC 33.9 Microbiology 07/27 533 URINE ROUT: Urine Culture - RECD 07/27 533 URINE ROUT: Streptococcus pneumoniae Antigen (M - RECD 07/27 533 URINE ROUT: Legionella Antigen - RECD 07/27 0307 STOOL: Stool Culture - COLB 07/27 0229 STOOL: Stool Culture - CAN Cancelled: Cancelled via OE: Per MD Decision 07/26 1501 BLOOD: Blood Culture - RECD 07/26 1434 URINE ROUT: Urine Culture - RECD 07/26 1410 BLOOD: Blood Culture - RECD 07/26 1212 STOOL: Clostridium difficile Toxin A & B - COLB 07/26 1212 STOOL: Stool Culture - COLB Assessment/Plan Assessment: Ms Logan is a 86 yr old woman who was known to be in her usual state of health one week ago. She has a PMH of COPD(2L oxygen PRN), HTN. She came to the hospital w/ a chief concern of diarrhea x 1 wk, and shortness of breath x 2 days. At the time of admission, vitals indicated T 97.1, GA 91, RR 22, BP 138/90, 92% 2L. Lab findings indiated- Leucocytosis WBC 19.1 w/ 84% granulocytes, Hb 14.3, Normal electrolytes- Na 136, K 4.2, Bicarbonate 28, BUN 29, Sr Cr 0.7, BUN/Cr ratio-41.4, AST 32, ALT 60, Alkaline phosphotase 90, UA clear. Radiological findings- CXR indicated left lower lobe pnemonia ? (retrocardiac opacification- also seen on the CT scan abdomen, although limited exam). CT scan abdomen for the evaluation of diarrhea revealed diverticulosis, multiple hepatic cysts(gives a remote history of HepC, and exam findings of increased liver span) . Also has incidental findings of hemangioma in the gluteal region, and Schwannoma. Admission diagnosisi: 1. Community Acquired PNA. 2. Viral gastroenteritis Below is the problem list and plan: 1. Shortness of breath- Currently on oxygen. Pt has been started on abx, intravenous Ceftriaxone and Azithromycin. LRC, blood culture. Urinary strep negative. Leukocytosis improving 19.1--> 16.3. Antibiotics to be changed to by mouth Augmentin in the a.m. If the patient remains stable, could be discharged in a.m. 2. Diarrhea- likely viral gastroenteritis. Symptomatic treatment. Stool cultures since the pt had symtpoms for a week. Diet as tolerated. 3. Abnormal CT findings- slightly elevated transaminases. As per the PCP negative for hepatitis C. Currently stable. Schwannoma-currently no neurological signs or symptoms. Continue to monitor. Check INR for increased bruising and abnormal liver patholog on imaging. 4. Diet- heart heatlhy diet. 5. DVT prophylaxis - lovenox. Problem List: 1. Pneumonia Pain Ratin Pain Location: None Pain Goal: Pain 4 or less Pain Plan: Tylenol Tomorrow's Labs & Rationales: INR-to check liver function CBC-to monitor for leukocytosis, patient has pneumonia. BLAINE KRAFT MD 07/27/16 1438: Attending MD Review Statement Attending Statement Attending MD Statement: examined this patient, discuss w/resident/PA/DROP COUNT ASSOCIATE, agreed w/resident/PA/DROP COUNT ASSOCIATE, reviewed EMR data (avail) Attending Assessment/Plan: 86F PMH COPD on PRN home oxygen, HTN admitted with 1 week of subjective fever, productive cough with yellow sputum, shortness of breath and diarrhea with 4-5 episodes per day. Found to have left retrocardiac pneumonia on imaging. Afebrile in ED with stable vitals, WBC 19. Left sided rhonchi on exam. Patient feels ill and weak. Long smoking history, not active. Rapid flu negative. Reports a history of HCV. Abdominal imaging shows multiple chronic hepatic cysts. 1. LLL pneumonia 2. Leukocytosis (neutrophilia) 3. COPD 4. Diarrhea 5. Chronic HCV 6. Hepatic cysts Plan - Continue on general medicine - Continue Ceftriaxone and Azithromycin - Follow blood and sputum cultures - TRC/nebulizer treatments - Titrate down oxygen as tolerated - Will hold off on steroids for now - Monitor BM, diarrhea seems to have ceased - Follow up stool culture and C.diff - Contact PCP about HCV history - Hepatic cysts are stable at this time, no further workup required as inpatient , should be monitored as an outpatient - Continue home medications - DVT PPx
--- NOTE | 2016-07-27 07:00 | PN- Student ---
Subjective Subjective: Source: Patient History of Present Illness: Ms. Logan is an 86 y/o patient that came in yesterday to the [facility] due to a chief complaint of Diarrhea for 1 one week and shortness of breath for 2 days. She has a past medical history of COPD and she reported to have Hepatitis C. The patient mentioned that the diarrhea started one week ago and denied any presence of blood, mucus or color changes in the stool. See currently has no pain and the symptoms come during the day at the most part. She sees Dr. Diaz and doesn't follow up any pulmonologists with regards of her COPD. The patient denies any nausea, vomiting, constipation, changes in urine color/ dysuria, loss of consciousness, visiona changes, palpitations or chest pain. The patient mentioned to have chills sporadically but denies any episodes of fever or night sweats. She mentioned to have gait instability that has been present for a long period of time (~a year). Allergies/Medications: Allergies - NKAD Current Medications - Amlodipine (5mg PO Daily) - Sertraline (50mg 1/2 TAB PO Daily) Past Medical Hx: Travel History Patient denies any trips outside of the [facility]. Medical History Neurological- NONE Cardiovascular- NONE Respiratory- COPD Gastrointestinal- NONE Hepatic- NONE Renal- NONE Psychiatric- NONE Endocrine- NONE Surgical History No surgeries Family History: No relevant family history Psychosocial History: Where do you live? Home Who Do You Live With? Alone Services at Home: None Primary Language: Portuguese Smoking Status: Quit (Smoked for 60 less than 1/2 pack a day) EtOH Use: Denies use Illicit Drug Use: Denies any use of Illicit drugs Functional Ability: ADLs Independent: dressing, eating, toileting, bathing. Ambulation: independent IADLs Independent: shopping, housework, finances, food prep, telephone, transportation , medication admin. Objective Objective: Current Medications Sig/Celeste Start time Last Medication Dose Route Stop Time Status Admin Albuterol Sulfate 3 ML Q4H PRN 07/26 1715 AC INH Albuterol Sulfate 3 ML ONCE ONE 07/26 1245 DC 07/26 INH 07/26 1246 1255 Azithromycin 500 MG DAILY 07/27 1000 AC Dextrose/Water 250 ML IV Azithromycin 500 MG ONCE ONE 07/26 1345 DC 07/26 Dextrose/Water 250 ML IV 07/26 1444 1508 Ceftriaxone Sodium 1,000 MG DAILY 07/27 1000 AC IV Ceftriaxone Sodium 0 .STK-MED ONE 07/26 1351 DC .ROUTE Ceftriaxone Sodium 1,000 MG ONCE ONE 07/26 1345 DC 07/26 IV 07/26 1346 1508 Enoxaparin Sodium 40 MG DAILY 07/27 1000 AC SC Ipratropium [place] 2.5 ML ONCE ONE 07/26 1245 DC 07/26 INH 07/26 1246 1255 Methylprednisolone 0 .STK-MED ONE 07/26 1326 DC .ROUTE Methylprednisolone 125 MG ONCE ONE 07/26 1300 DC 07/26 IV 07/26 1301 1328 Ondansetron HCl 4 MG ONCE ONE 07/26 1215 CAN IV 07/26 1216 Sertraline HCl 25 MG DAILY 07/27 1000 AC PO Sodium Chloride 1,000 ML .[id number] 07/26 1700 DC 07/26 IV 07/27 0619 1702 Sodium Chloride 1,000 ML BOLUS ONE 07/26 1345 DC 07/26 IV 07/26 1444 1508 Vital Signs Date Time Temp Pulse Resp B/P Pulse O2 O2 Flow FiO2 Ox Delivery Rate 07/27 0059 97.6 07/27 0000 Nasal 2.0L Cannula 07/26 2359 96.4 65 18 110/60 94 Nasal 2.0L Cannula 07/26 1907 Nasal 2.0L Cannula 07/26 1746 98.6 74 18 119/58 95 Room Air 07/26 1600 98.6 70 18 146/56 95 Nasal 2.0L Cannula 07/26 1339 94 Nasal 2.0L Cannula 07/26 1151 Nasal Cannula 07/26 1108 97.1 91 22 138/90 92 Room Air Intake & Output 07/27 0800 02/ 0000 07/26 1600 Intake Total 840 1825 Output Total 400 Balance 440 1825 Intake, IV 600 1625 Intake, Oral 240 200 Number 0 Bowel Movements Output, Urine 400 Patient 103 lb 103 lb Weight Physical Examination: General: No signs of respiraotyr distress, alert and oriented X3 HEENT: PERRLA, NCAT, anicteric sclera Neck: No JVD Mouth: No central cyanosis Lungs: Lungs clear to auscultation; no addedd sounds heard CV: S1, S2 sounds were heard; no murmurs were heard. GI: Soft abdomen without tenderness; Hepatomegaly (Liver is palpable below CV border) Upper Extremities: No finger clubbing or tremors; 5+ strength bilaterally Lower Extremities: No signs of edema or changes in temperature. Apparently recent ehymosis on L-feet. 5+ strength bilaterally; Normal DTR's & Negative Babinski Neurological: Normal Speech. Results Results: Laboratory Tests 07/26/16 1631: Lactic Acid Cancelled 07/26/16 1434: Urine Color YEL, Urine Clarity CLEAR, Urine pH 6.5, Ur Specific [employer] 1.010, Urine Protein NEG, Urine Ketones NEG, Urine Nitrite NEG, Urine Bilirubin NEG, Urine Urobilinogen 0.2, Ur Leukocyte Esterase NEG, Ur Microscopic EXAM NOT REQUIRED, Urine Hemoglobin NEG, Urine Glucose NEG 07/26/16 1331: Lactic Acid Cancelled 07/26/16 1325: pH 7.45, pCO2 37, pO2 94, HCO3 25, ABG O2 Sat (Measured) 97.0, P-50 (Temp Corrected) N, Carboxyhemoglobin 0.6 L, O2 Concentration % 2LPM, O2 Delivery Method NC, Phlebotomy Draw Site RIGHT BRACHIAL 07/26/16 1210: Anion Gap 7, Estimated GFR > 60, BUN/Creatinine Ratio 41.4 H, Glucose 124 H, Lactic Acid 1.6, Calcium 9.2, Magnesium 2.1, Total Bilirubin 1.0, AST 32, ALT 60 H, Alkaline Phosphatase 90, Troponin I < 0.01, Total Protein 6.8, Albumin 3.8, Globulin 3.0, Albumin/Globulin Ratio 1.3, CBC w Diff MAN DIFF ORDERED, RBC 4.85, MCV 86.8, MCH 29.4, RDW 13.8, MPV 8.6, Gran % 84.6 H, Lymphocytes % 7.3 L, Monocytes % 6.0, Eosinophils % 0.3, Basophils % 1.8, Absolute Granulocytes 16.2 H, Absolute Lymphocytes 1.4, Absolute Monocytes 1.1 H, Absolute Eosinophils 0.1 , Absolute Basophils 0.3, Platelet Estimate ADEQUATE, Normocytic RBCs VERIFIED, Normochromic RBCs VERIFIED, PUBS MCHC 33.9 Microbiology 07/27 533 URINE ROUT: Urine Culture - RECD 07/27 533 URINE ROUT: Streptococcus pneumoniae Antigen (M - COMP 07/27 533 URINE ROUT: Legionella Antigen - COMP 02/03 0307 STOOL: Stool Culture - COLB 07/27 0229 STOOL: Stool Culture - CAN Cancelled: Cancelled via OE: Per MD Decision 07/26 1501 BLOOD: Blood Culture - RECD 07/26 1434 URINE ROUT: Urine Culture - RECD 07/26 1410 BLOOD: Blood Culture - RECD 07/26 1212 STOOL: Clostridium difficile Toxin A & B - COLB 07/26 1212 STOOL: Stool Culture - COLB Assessment/Plan Assessment: Ms. Logan is an 86 y/o that came in to the [facility] due to one week history of Diarrhea and to consecutive days of shortness of breath. She has a past medical history of COPD (unfollowed) and HepC (resported by her but questionable). Based on the CT scan findings, it was decided to admitt the patient since there is a possibility that she has Community-Acquired Pneumonia. Based on the physical exam findings we cannot derive too much information since the lungs were clear to auscultation and her vital signs were normal (afebrile and normotensive). No sepsis at the present. In terms of the diarrhea, the patient denied any out of the ordinary foods that could be associated with food poisnong. She does not have any constipation or nausea and she described the diarrhea as yellowish in color. No relevant signs were acquired from the physical exam. There is a possibility that the patient has viral gastroentirits given the above mentioned signs and symptoms. Potential Dx's: 1) Community-Acquired Pneumonia 2) Viral Gastroenteritis Plan: Problem List & Plan: 1) Shortness of Breath due to CA-Pneumonia Based on the CT findings, the patient was found to have a L-lower lobe consolidation that was suggestive of Pneumonia. Based on epidemiology and laboratory/imaging findings it can be said that the patient has CA pneumonia, although further lab work needs to be performed to treat the patient with a more specific set of antibiotics rather than a broad-spectrum approach. The patient has no constitutional signs at the moment but regardless of that, given the SOB we will treat the patient and admitt her as well. - Have the patient on Azithromycin and Ceftriaxone - Monitor changes in VS specially on Temperature - Schedule a Dental Equipment Installer And Servicer visit to assess previously Dx COPD 2) Diarrhea The patient has had no sick contacts or changes in dietary habits that could be associated with food poisoning as the etiological factor for the patient's diarrhea. Based on the patient's stool description of watery diarrhea and lack of blood/mucous in the stool, the diarrhea might be from GI irritation leading to diarrhea. - Have the patient on IV Fluids 0.9% NaCl to prevent dehydration - If symptoms persist while inpatient status, schedule GI consult 3) Diet - Heart healthy diet with the least fat and irritants posible 4) DVT PPx - Start the patient on Lovenox and ALP's to avoid any potential Deep Vein Thrombus formation
[2016-07-27 08:02] LABS: ABSOLUTE BASOPHIL COUNT 0 /CUMM (0.0-0.2); ABSOLUTE EOSINOPHIL COUNT 0 /CUMM (0.0-0.7); ABSOLUTE GRANULOCYTE CT 14.3 /CUMM (1.4-6.5); ABSOLUTE MONOCYTE COUNT 0.9 /CUMM (0.10-0.60)
[2016-07-27 08:13] VITALS: BP 132/64
[2016-07-27 08:25] LABS: ABSOLUTE LYMPH COUNT 1.1 /CUMM (1.2-3.4); BASOPHIL % 0 % (0.0-2.0); EOSINOPHIL % 0.2 % (0-5); MEAN CORPUSCULAR HGB 29.4 PG (27.0-31.0); MEAN CORPUSCULAR HGB CONC 33.9 G/DL (33.0-37.0); MEAN CORPUSCULAR VOLUME 86.7 FL (81.0-99.0); MEAN PLATELET VOLUME 8.6 FL (7.4-10.4); PLATELET COUNT 181 /CUMM (130-400); RBC DISTRIBUTION WIDTH 13.7 % (11.5-14.5); RED BLOOD CELL CT 4.02 /CUMM (4.20-5.40); WHITE BLOOD CELL COUNT 16.3 /CUMM (4.8-10.8)
[2016-07-27 08:34] LABS: HEMATOCRIT 34.9 % (37-47)
--- NOTE | 2016-07-27 08:40 | Admission Certification ---
Admission Certification Certification Statement - As attending physician, I certify that at the time of - admission, based on clinical presentation, severity of - symptoms, need for further diagnostic testing and - therapeutic interventions, and risk of adverse outcomes - without in-hospital treatment, in my clinical assessment, - this patient requires an acute hospital stay for a minimum - of two nights or longer. I have also considered psychsocial - factors such as support system, advanced age, financial - issues, cognitive issues, and failed out-patient treatments, - past re-admission history, safety of patient, and lack of - compliance as applicable. Specific rationale supporting this admission is: Patient requires IV antibiotics and further workup of her diarrhea
[2016-07-27 08:57] LABS: GRANULOCYTE % 87.6 % (42.2-75.2)
[2016-07-27] MEDS ORDERED: AUGMENTIN 875-1 EACH PO ×2 (11:53→16:59)
--- NOTE | 2016-07-27 15:49 | Patient Discharge Instructions ---
Discharge Instructions General Discharge Information You were seen/treated for: 1. Community-acquired pneumonia Watch for these problems: #1 shortness of breath, chest pain #2 palpitations Special Instructions: #1 please follow-up with a primary care provider within the week of discharge. Acute Coronary Syndrome Inclusion Criteria At DC or during hospital stay patient has or had the following: ACS DIAGNOSIS No Discharge Core Measures Meds if any: Prescribed or Continued at Discharge Meds if any: NOT Prescribed or Continued at Discharge Congestive Heart Failure Inclusion Criteria At DC or during hospital stay patient has or had the following: CHF DIAGNOSIS No Discharge Core Measures Meds if any: Prescribed or Continued at Discharge Meds if any: NOT Prescribed or Continued at Discharge Cerebrovascular accident Inclusion Criteria At DC or during hospital stay patient has or had the following: CVA/TIA Diagnosis No Discharge Core Measures Meds if any: Prescribed or Continued at Discharge Meds if any: NOT Prescribed or Continued at Discharge Venous thromboembolism Inclusion Criteria VTE Diagnosis No VTE Type NONE VTE Confirmed by (Test) NONE Discharge Core Measures - Per Current guidelines, there needs to be overlap - treatment for the first 5 days of Warfarin therapy. - If discharged on Warfarin prior to 5 days of - overlap therapy, the patient will need to be - assessed for post discharge needs including - *Post discharge parental anticoagulation - *Warfarin and/or parental anticoagulation education - *Follow up date to check INR post discharge At least 5 days overlap therapy as Inpatient No Meds if any: Prescribed or Continued at Discharge Note: Overlap Therapy is Warfarin and Anticoagulant Meds if any: NOT Prescribed or Continued at Discharge
[2016-07-27 17:26] VITALS: BP 129/56
[2016-07-27 23:55] VITALS: BP 154/68
[2016-07-28 08:07] VITALS: BP 158/82
[2016-07-28 08:42] LABS: ABSOLUTE BASOPHIL COUNT 0.1 /CUMM (0.0-0.2); ABSOLUTE EOSINOPHIL COUNT 0.1 /CUMM (0.0-0.7); ABSOLUTE GRANULOCYTE CT 10.8 /CUMM (1.4-6.5); ABSOLUTE LYMPH COUNT 1.6 /CUMM (1.2-3.4); ABSOLUTE MONOCYTE COUNT 1.1 /CUMM (0.10-0.60); BASOPHIL % 0.5 % (0.0-2.0); GRANULOCYTE % 78.5 % (42.2-75.2); HEMATOCRIT 37.1 % (37-47); MEAN CORPUSCULAR HGB 29.3 PG (27.0-31.0); MEAN CORPUSCULAR HGB CONC 33.5 G/DL (33.0-37.0); MEAN CORPUSCULAR VOLUME 87.5 FL (81.0-99.0); MEAN PLATELET VOLUME 8.7 FL (7.4-10.4); PLATELET COUNT 181 /CUMM (130-400); RBC DISTRIBUTION WIDTH 13.6 % (11.5-14.5); RED BLOOD CELL CT 4.24 /CUMM (4.20-5.40); WHITE BLOOD CELL COUNT 13.7 /CUMM (4.8-10.8)
[2016-07-28 09:06] LABS: PT 9.8 SEC (9.4-12.5)
--- NOTE | 2016-07-28 09:51 | PN- Housestaff ---
JESÚS SANTOS,SUSSY 07/28/16 0951: Subjective Follow-up For: Pneumonia Subjective: Patient seen and examined. She was seen sitting upright at bedside maintained on supplemental oxygen via nasal cannula resting comfortably. She appears to be in no acute distress. She reports feeling well but expresses that she feels unsafe to go home as "things are getting harder" in regards to activities of daily living. She is requesting to go to a short-term rehabilitation center. Otherwise she has no complaints. Additionally she denies any headache, fever, chills, chest pain, palpitations, shortness of breath, nausea, vomiting, diarrhea. No overnight events reported. Review of Systems Constitutional: Reports: see HPI. Objective Last 24 Hrs of Vital Signs/I&O Vital Signs Date Time Temp Pulse Resp B/P Pulse O2 O2 Flow FiO2 Ox Delivery Rate 07/28 1038 58 158/82 07/28 0807 98.1 58 20 158/82 97 Nasal 2.0L Cannula 07/28 0806 98 Nasal 2.0L Cannula 07/28 0000 96 Nasal 2.0L Cannula 07/27 2355 98.0 65 18 154/68 96 Nasal 2.0L Cannula 07/27 1823 96 Nasal 2.0L Cannula 07/27 1726 98.1 72 20 129/56 96 07/27 1616 Nasal 2.0L Cannula 07/27 1600 96 Nasal 2.0L Cannula 07/27 1453 Nasal 2.0L Cannula 07/27 1451 96 Nasal 2.0L Cannula Intake & Output 07/28 1600 07/28 0800 07/28 0000 Intake Total 1800 Output Total 301 1250 550 Balance -301 -1250 1250 Intake, IV 900 Intake, Oral 900 Output, Stool 1 Output, Urine 300 1250 550 Physical Exam General Appearance: Alert, Oriented X3, Cooperative, No Acute Distress Other Physical Findings: General -well-developed, thin elderly woman in no acute distress HEENT - NCAT, PERRL, EOMI, anicteric sclera dominative nasal cannula in place Cardio - S1, S2 w/o murmurs/gallops/rubs Resp -diminished airflow in bilateral lung melgoza, no crackles GI - soft, nontender, nondistended, bowel sounds present Neuro - Awake and alert, CN II - XII grossly intact Extremities - no edema, pulses intact Current Medications: Current Medications Sig/Celeste Start time Last Medication Dose Route Stop Time Status Admin Albuterol Sulfate 3 ML Q4H PRN 07/26 1715 AC INH Amlodipine Besylate 5 MG DAILY 07/28 1000 AC 07/28 PO 1038 Azithromycin 500 MG DAILY 07/27 1000 AC 07/28 Dextrose/Water 250 ML IV 1039 Ceftriaxone Sodium 1,000 MG DAILY 07/27 1000 AC 07/28 IV 1145 Enoxaparin Sodium 40 MG DAILY 07/27 1000 AC 07/28 SC 1035 Sertraline HCl 25 MG DAILY 07/27 1000 AC 07/28 PO 1145 Last 24 Hrs of Lab/Julio C Results Last 24 Hrs of Labs/Mics: Laboratory Tests 07/28/16 0724: PT 9.8, INR 0.93, CBC w Diff NO MAN DIFF REQ, RBC 4.24, MCV 87.5, MCH 29.3, RDW 13.6, MPV 8.7, Gran % 78.5 H, Lymphocytes % 11.7 L, Monocytes % 8.3, Eosinophils % 1.0, Basophils % 0.5, Absolute Granulocytes 10.8 H, Absolute Lymphocytes 1.6, Absolute Monocytes 1.1 H, Absolute Eosinophils 0.1, Absolute Basophils 0.1, PUBS MCHC 33.5 Microbiology 07/28 1318 STOOL: Clostridium difficile Toxin A & B - COLB Assessment/Plan Assessment: Patient reports feeling well while on supplemental oxygen and intravenous antibiotics. She is to complete a total antibiotic course of 7 days. Patient's daughter is insisting that the patient be tested for Clostridium difficile prior to discharge. Patient also expresses that she would not to be discharged to home as she feels unsafe to do so. Physical therapy assessment determined that patient is independent and requires no short-term rehabilitation. She will be kept for another 24 hours and be considered for discharge pending results of the C. difficile toxin. She will be discharged on oral Augmentin. Problem list: -Left lower lobe pneumonia, on antibiotics -Viral gastroenteritis -Weakness -COPD, on 2.0 L home O2 Plan: -Continue IV antibiotics, discharged on oral Augmentin to complete 7 day total course -Discharge to home per PT assessment, pending results of C. difficile toxin -Diet: heart healthy diet -DVT prophylaxis: Lovenox Problem List: 1. Pneumonia Pain Ratin Pain Location: None Pain Goal: Remain pain free Pain Plan: As noted in plan Tomorrow's Labs & Rationales: Complete blood count-leukocytosis SHAILESH SANTOS,JOSE 07/28/16 1311: Attending MD Review Statement Attending Statement Attending MD Statement: examined this patient, discuss w/resident/PA/HEEL CUTTER, agreed w/resident/PA/HEEL CUTTER, reviewed EMR data (avail), discussed with nursing, discussed with case mgmt, reviewed images, amended to note Attending Assessment/Plan: Patient seen and examined, said that when she walked she was just not feeling that well. She still requiring oxygen. She is currently on IV antibiotics for an pneumonia. When patient came in she had a therefore her son is very interested in getting her checked for C. difficile. Vital Signs Date Time Temp Pulse Resp B/P Pulse O2 O2 Flow FiO2 Ox Delivery Rate 07/28 1038 58 158/82 07/28 0807 98.1 58 20 158/82 97 Nasal 2.0L Cannula 07/28 0806 98 Nasal 2.0L Cannula 07/28 0000 96 Nasal 2.0L Cannula 07/27 2355 98.0 65 18 154/68 96 Nasal 2.0L Cannula 07/27 1823 96 Nasal 2.0L Cannula 07/27 1726 98.1 72 20 129/56 96 07/27 1616 Nasal 2.0L Cannula 07/27 1600 96 Nasal 2.0L Cannula 07/27 1453 Nasal 2.0L Cannula 07/27 1451 96 Nasal 2.0L Cannula on exam; aox3, nad. cv; s1,s2, rrr. resp; mild crackles left base. abd; soft, nt, bs+ ext; no edema. Laboratory Tests 07/28 0724 Coagulation PT (9.4 - 12.5 SEC) 9.8 INR (0.90 - 1.19) 0.93 Hematology CBC w Diff NO MAN DIFF REQ WBC (4.8 - 10.8 /CUMM) 13.7 H RBC (4.20 - 5.40 /CUMM) 4.24 Hgb (12.0 - 16.0 G/DL) 12.4 Hct (37 - 47 %) 37.1 MCV (81.0 - 99.0 FL) 87.5 MCH (27.0 - 31.0 PG) 29.3 RDW (11.5 - 14.5 %) 13.6 Plt Count (130 - 400 /CUMM) 181 MPV (7.4 - 10.4 FL) 8.7 Gran % (42.2 - 75.2 %) 78.5 H Lymphocytes % (20.5 - 51.1 %) 11.7 L Monocytes % (1.7 - 9.3 %) 8.3 Eosinophils % (0 - 5 %) 1.0 Basophils % (0.0 - 2.0 %) 0.5 Absolute Granulocytes (1.4 - 6.5 /CUMM) 10.8 H Absolute Lymphocytes (1.2 - 3.4 /CUMM) 1.6 Absolute Monocytes (0.10 - 0.60 /CUMM) 1.1 H Absolute Eosinophils (0.0 - 0.7 /CUMM) 0.1 Absolute Basophils (0.0 - 0.2 /CUMM) 0.1 PUBS MCHC (33.0 - 37.0 G/DL) 33.5 A/P; 86F PMH COPD on PRN home oxygen, HTN admitted with pneumonia. Patient also had diarrhea on admission. Currently diarrhea has resolved but patient's son is very interested in getting her stool checked for C. difficile. She also had a recent treatment with antibiotics for pneumonia at [facility]. We'll continue current antibiotics. Will check stool for C. difficile. Continue TRC nebs. DVT plexus: Lovenox. PT recommended home with PT but patient is interested in going to rehabilitation. We'll reevaluate in 24 hours to see if patient is stable to be discharged home with home services versus rehabilitation.
[2016-07-28] MEDS ORDERED: AUGMENTIN 875-1 EACH PO (12:45)
[2016-07-28 15:39] VITALS: BP 130/60
[2016-07-28 23:51] VITALS: BP 150/76
[2016-07-29 08:22] VITALS: BP 114/68
--- NOTE | 2016-07-29 08:41 | PN- Housestaff ---
JESÚS SANTOS,SUSSY 07/29/16 0841: Subjective Follow-up For: Pneumonia Subjective: Patient seen and examined. She is seen sitting upright in her bed resting comfortably. She does not appear to be in any acute distress. She continues to report persistent weakness and hestancy to do many activities. She was encouraged to ambulate safely and understand her limitations that she may have. Additionally she denies any headache, fever, chills, chest pain, shortness of breath, nausea, vomiting, diarrhea. No overnight events reported. Review of Systems Constitutional: Reports: see HPI. Objective Last 24 Hrs of Vital Signs/I&O Vital Signs Date Time Temp Pulse Resp B/P Pulse O2 O2 Flow FiO2 Ox Delivery Rate 07/29 1023 62 114/68 07/29 0930 97 Nasal 2.0L Cannula 07/29 0822 97.9 62 20 114/68 96 Nasal 2.0L Cannula 07/29 0800 Nasal 2.0L Cannula 07/29 0000 98 Nasal 2.0L Cannula 07/28 2351 97.6 59 18 150/76 98 Nasal 2.0L Cannula Intake & Output 07/29 1600 07/29 0800 07/29 0000 Intake Total 970 240 Output Total Balance 970 240 Intake, IV 250 Intake, Oral 720 240 Number 1 0 Bowel Movements Physical Exam General Appearance: Alert, Oriented X3, Cooperative, No Acute Distress Other Physical Findings: General -well-developed, thin elderly woman in no acute distress HEENT - NCAT, PERRL, EOMI, anicteric sclera dominative nasal cannula in place Cardio - S1, S2 w/o murmurs/gallops/rubs Resp -diminished airflow in bilateral lung melgoza, no crackles GI - soft, nontender, nondistended, bowel sounds present Neuro - Awake and alert, CN II - XII grossly intact Extremities - no edema, pulses intact Current Medications: Current Medications Sig/Celeste Start time Last Medication Dose Route Stop Time Status Admin Albuterol Sulfate 3 ML Q4H PRN 07/26 1715 DCD 07/29 INH 0928 Amlodipine Besylate 5 MG DAILY 07/28 1000 DCD 07/29 PO 1023 Azithromycin 500 MG DAILY 07/27 1000 DCD 07/29 Dextrose/Water 250 ML IV 1023 Ceftriaxone Sodium 1,000 MG DAILY 07/27 1000 DCD 07/29 IV 1023 Enoxaparin Sodium 40 MG DAILY 07/27 1000 DCD 07/29 SC 1024 Sertraline HCl 25 MG DAILY 07/27 1000 DCD 07/29 PO 1023 Last 24 Hrs of Lab/Julio C Results Last 24 Hrs of Labs/Mics: Laboratory Tests 07/29/16 0820: CBC w Diff NO MAN DIFF REQ, RBC 4.45, MCV 87.6, MCH 29.3, RDW 13.8, MPV 8.6, Gran % 74.0, Lymphocytes % 15.2 L, Monocytes % 8.5, Eosinophils % 1.9, Basophils % 0.4, Absolute Granulocytes 7.6 H, Absolute Lymphocytes 1.6, Absolute Monocytes 0.9 H, Absolute Eosinophils 0.2, Absolute Basophils 0, PUBS MCHC 33.5 Assessment/Plan Assessment: Patient has hesitations about being discharged to home. She was determined to be independent with ambulation by the physical therapy assessment. Her concerns were addressed and safe ambulation was encouraged. She is to be discharged to home today on oral Augmentin. Problem list: -Left lower lobe pneumonia, on antibiotics -Viral gastroenteritis -Weakness -COPD, on 2.0 L home O2 Plan: -Continue IV antibiotics, discharge on oral Augmentin to complete 7 day total course -Discharge to home per PT assessment, pending results of C. difficile toxin -Diet: heart healthy diet -DVT prophylaxis: Lovenox Problem List: 1. Pneumonia Pain Ratin Pain Location: None Pain Goal: Pain 4 or less Pain Plan: As noted in plan Tomorrow's Labs & Rationales: None SHAILESH SANTOSJOSE 07/29/16 1344: Attending MD Review Statement Attending Statement Attending MD Statement: examined this patient, discuss w/resident/PA/DELI ASSOCIATE, agreed w/resident/PA/DELI ASSOCIATE, discussed with family, reviewed EMR data (avail), discussed with nursing, discussed with case mgmt, reviewed images, amended to note Attending Assessment/Plan: Patient seen and examined, feeling slightly better than yesterday. Her C. difficile came out negative. Patient wanted to go to rehabilitation but unfortunately PT recommendation does not support rehabilitation. We have discussed this with the case management. At this point patient is medically stable to get discharged on oral antibiotics for the treatment of her pneumonia. As I mentioned C. difficile results are negative. Patient should follow-up with Dr. Diaz as an outpatient.
[2016-07-29 09:27] LABS: ABSOLUTE BASOPHIL COUNT 0 /CUMM (0.0-0.2); ABSOLUTE EOSINOPHIL COUNT 0.2 /CUMM (0.0-0.7); ABSOLUTE GRANULOCYTE CT 7.6 /CUMM (1.4-6.5); ABSOLUTE LYMPH COUNT 1.6 /CUMM (1.2-3.4); ABSOLUTE MONOCYTE COUNT 0.9 /CUMM (0.10-0.60); BASOPHIL % 0.4 % (0.0-2.0); EOSINOPHIL % 1.9 % (0-5); HEMATOCRIT 38.9 % (37-47); MEAN CORPUSCULAR HGB 29.3 PG (27.0-31.0); MEAN CORPUSCULAR HGB CONC 33.5 G/DL (33.0-37.0); MEAN CORPUSCULAR VOLUME 87.6 FL (81.0-99.0); MEAN PLATELET VOLUME 8.6 FL (7.4-10.4); PLATELET COUNT 215 /CUMM (130-400); RBC DISTRIBUTION WIDTH 13.8 % (11.5-14.5); RED BLOOD CELL CT 4.45 /CUMM (4.20-5.40); WHITE BLOOD CELL COUNT 10.3 /CUMM (4.8-10.8)
[2016-07-29 10:23] VITALS: BP 114/68
--- NOTE | 2016-07-29 16:48 | Discharge Summary ---
Visit Information Visit Dates Admission Date: 07/26/16 Discharge Date: 07/29/16 Hospital Course Course Attending Physician: BLAINE KRAFT MD Primary Care Physician: Hayden WHITNEY MD [facility] Hospital Course: 86-year-old woman with past medical history significant for COPD on 2.0 L home O2 seen for evaluation of shortness breath and diarrhea. She reportedly developed diarrhea one week prior to admission characterized as brown/loose nonbloody frequent bowel movements without any mucus or abdominal pain. 48 hours prior to admission patient developed shortness of breath with exertional fatigue. Patient was admitted to the general medicine floor for evaluation of possible community-acquired pneumonia and viral gastroenteritis. Community-acquired pneumonia: Blood/urine/sputum cultures were obtained and patient was started on intravenous ceftriaxone and azithromycin. Strep/Legionella antigens were negative. Patient remained afebrile during the hospital course with leukocytosis improved from 19.1-10.3 on discharge. She received 4 days total of intravenous antibiotics and was discharged on oral Augmentin to complete a 7 day total course. Cultures remained no growth to date on discharge. She was instructed to follow-up with her primary care provider within one week of discharge. Viral gastroenteritis: C. difficile stool culture sent and was subsequently found to be negative. Patient was given 2 L of intravenous normal saline fluid resuscitation and continued on antiemetics. She tolerated a regular diet during the hospital course. Physical therapy assessment: Patient is requesting to be discharged to short-term rehabilitation she states she is having difficulty with activities of daily living. This was discussed with patient and she simply said "things are getting harder". PT evaluation to determine the patient was independent at baseline and could be safely discharged home without any home physical therapy. Safe ambulation was discussed with patient. Allergies: Coded Allergies: No Known Allergies (07/26/16) Disposition Summary Disposition Principal Diagnosis: Community-acquired pneumonia Additional Diagnosis: Viral gastroenteritis Discharge Disposition: home or self care Discharge Instructions General Discharge Information Code Status: Full Code Patient's Diet: Regular diet Patient's Activity: Return to full activity as tolerated Follow-Up Instructions/Appts: Follow-up with her primary care provider within one week of discharge. Take Augmentin as directed. Continue all previous home medications. Medications at Discharge Discharge Medications: Continue taking these medications: Amlodipine Besylate (Amlodipine Besylate) 5 MG TABLET 1 Tablet ORAL DAILY Qty = 30 Comments: Last Taken: 07/29/16 Time: 1030 Sertraline HCl (Sertraline HCl) 50 MG TABLET 0.5 Tablet ORAL DAILY Qty = 30 Comments: Last Taken: 07/29/16 Time: 1030 Start taking the following new medications: Amoxicillin/Potassium Clav (Augmentin 875-125 Tablet) 875 MG-125 MG TABLET 1 Tablet ORAL TWICE DAILY Days = 5 No Refills Instructions: . Copies To: EMMANUEL SANTOS,DIMITRI Lebron
== END 2016-07-29 15:20 | disposition home health service (06) | DRG 195 ==
LOC: ENRESERVTM → ENRESERVDT → ERH 11:03 → 2NB 17:35 → ERHI 17:35 → 2NB 18:13
PROVIDERS: Internal Medicine; Internal Medicine Endocrinology, Diabetes & Metabolism; Internal Medicine Interventional Cardiology; Physician Assistant; ADMIT Internal Medicine
DX: J18.9 Pneumonia, unspecified organism (principal); Z99.81 Dependence on supplemental oxygen; J44.9 Chronic obstructive pulmonary disease, unspecified; A08.4 Viral intestinal infection, unspecified
CPT/HCPCS: 2NBSP; 36415; 74177; 81003; 82436; 87040; 87045; 87086; 87449; 87450; 87804; 87804-59; 93005; 93010; 96374; 96375; 97110-GO; 97116-GO; 97161-GP; 97530-GO; J0456; J0696; J1650; J2930; J7060